=== PATIENT | female | born 1950 | race Caucasian/White ===

== ENCOUNTER 2021-06-14 04:37 | Day surgery (SDC) | payer OTHER, BC ==
[2021-06-08 15:25] VITALS: BMI 19.2
[2021-06-14] MEDS ORDERED: KETAMINE HCL 200 MG/20 ML VIAL ONE (07:19)
[2021-06-14 08:59] VITALS: PULSE 67
[2021-06-14 09:16] VITALS: BP 111/64; TEMP 97.6
== END 2021-06-14 09:43 | disposition home or self-care (01) ==
LOC: JASU-ENDO 04:37
PROVIDERS: ATTEND Internal Medicine Gastroenterology
PROC: 0DJD8ZZ Inspection of Lower Intestinal Tract, Via Natural or Artificial Opening Endoscopic (ICD-10-PCS; principal; 2021-06-14 08:00)
DX: Z12.11 Encounter for screening for malignant neoplasm of colon (principal); K57.30 Diverticulosis of large intestine without perforation or abscess without bleeding; K63.89 Other specified diseases of intestine; K64.8 Other hemorrhoids; Z83.71 Family history of colonic polyps